=== PATIENT | male | born 1985 | race Caucasian/White ===

== ENCOUNTER → 2017-11-27 | Outpatient (CLI) | payer MEDICARE ==
--- NOTE | 2017-11-27 11:20 | US ---
EXAMINATION TYPE: US groin LT DATE OF EXAM: 11/27/2017 COMPARISON: NONE CLINICAL HISTORY: R10.32 left lower quad pain. Patient lifts weights and had sharp pain in LLQ, no bu lge felt by patient or tech, tender area only Scanned left inguinal canal at area of patients complaint, no obvious hernia or other abnormality not ed. No break in the abdominal sheath seen with or without valsalva. Morphologically normal superficia l inguinal lymph node is seen on the left measuring 7 mm in short axis containing a regular fatty hil um. IMPRESSION: No sonographic evidence of inguinal hernia with Valsalva maneuver.
== END | disposition home or self-care (01) ==
LOC: RADUSWWP 10:47
PROVIDERS: ATTEND Family Medicine
DX: R10.32 Left lower quadrant pain (principal)